=== PATIENT | female | born 1935 | race Caucasian/White ===

== ENCOUNTER → 2023-10-13 12:27 | Outpatient (CLI) | payer OTHER, SELFPAY ==
--- NOTE | 2023-10-13 12:28 | DI.US.S_ITS ---
PROCEDURE: US THYROID INDICATIONS: BULGING EYES TECHNIQUE: Real-time scanning was performed of the thyroid gland, with image documentation. COMPARISON: None. FINDINGS: Right: Thyroid lobe measures 3.8 x 1.2 x 1.1 cm, and is homogeneous in echotexture. Left: Thyroid lobe measures 3.8 x 1 x 0.9 cm, and is homogenous in echotexture. Isthmus: 0.2 cm thick. No discrete actionable thyroid nodule. Patient palpated lumps, corresponding to submandibular glands on imaging. These glands have a hyperemic appearance with ductal ectasia. IMPRESSION: No discrete thyroid nodule. Normal sized thyroid glands. Patient palpated a lump correspond to hyperemic submandibular glands with ductal ectasia, likely infectious or inflammatory. A more distal sialolith is possible . Dictated by: Neo Guardado M.D. on 10/13/2023 at 15:35 Approved by: Neo Guardado M.D. on 10/13/2023 at 15:36
[2023-10-13 14:43] LABS: Free T3, Triiodothyronine Free 3.78 pg/mL (2.77-5.27); Free T4, Direct Thyroxine 1.19 ng/dL (0.78-2.19)
[2023-10-13 14:57] LABS: Thyroid Stimulating Hormone 3.41 uIU/mL (0.47-4.68)
== END ==
PROVIDERS: Family Provider Nurse Practitioner; PCP Nurse Practitioner; Referring Provider Nurse Practitioner; Visit Provider Nurse Practitioner
DX: H05.20 Unspecified exophthalmos (principal); E04.1 Nontoxic single thyroid nodule
CPT/HCPCS: 36415; 76536; 84439; 84443; 84481